=== PATIENT | female | born 1960 | race Asian ===

== ENCOUNTER 2020-05-26 23:08 | Emergency (ER) | payer OTHER ==
[~2020-05-26] VITALS: Ht 147.3 cm; Wt 43.2 kg
[2020-05-26] MEDS ORDERED: LEVO50 PO (23:28)
[2020-05-26] MEDS ORDERED: OMEP20CA13 PO (23:28)
[2020-05-26] MEDS ORDERED: ONDANSETRON HCL 4 MG/2 ML VIAL IVP ONE (23:30)
[2020-05-27] MEDS ORDERED: AcetaZOLAMIDE SODIUM 500 MG VIAL IVP ONE
[2020-05-27] MEDS ORDERED: MORPHINE SULFATE 2 MG/ML SYRINGE IVP ONE (01:15)
[2020-05-27 01:18] LABS: BASOPHILS % (AUTO) 0.4 % (0.0-2.0); HEMATOCRIT 41.6 % (36-46); HEMOGLOBIN 13.5 g/dL (12.0-16.0); LYMPHOCYTES # (AUTO) 1.3 K/uL (1.0-4.8); LYMPHOCYTES % (AUTO) 17.2 % (22.0-44.0); MEAN CORPUSCULAR HEMOGLOBIN 26.6 pg (26.0-34.0); MEAN CORPUSCULAR HGB CONC 32.5 G/dL (31.0-37.0); MEAN CORPUSCULAR VOLUME 82 fL (80-100); MONOCYTES # (AUTO) 0.3 K/uL (0.1-1.0); MONOCYTES % (AUTO) 4.5 % (2.0-9.0); NEUTROPHILS # (AUTO) 5.5 K/uL (1.8-7.7); NEUTROPHILS % (AUTO) 75.9 % (40.0-70.0); PLATELET COUNT (AUTO) 171 K/uL (150-450); RED BLOOD CELL COUNT(AUTO) 5.08 MIL/uL (4.00-5.20); RED CELL DISTRIBUTION WIDTH 13.1 % (11.5-14.5)
[2020-05-27 01:21] LABS: ANION GAP 10 mmol/L (8-16); CALCIUM, TOTAL 8.7 mg/dL (8.8-10.5); CARBON DIOXIDE 28 mmol/L (22-29); CHLORIDE 102 mmol/L (98-107); CREATININE 0.75 mg/dL (0.60-1.30); GLOMERULAR FILTR. RATE CALC > 60 mL/min (>60); GLUCOSE,RANDOM 115 mg/dL (70-110); POTASSIUM 3.3 mmol/L (3.5-5.1); SODIUM SERUM 140 mmol/L (136-145); UREA NITROGEN, BLOOD 12 mg/dL (7-18)
[2020-05-27 01:26] LABS: ALANINE AMINOTRANSFERASE 18 U/L (12-78); ALBUMIN 4.1 g/dL (3.4-5.0); ALKALINE PHOSPHATASE 116 U/L (46-116); ASPARTATE AMINOTRANSFERASE 23 U/L (15-37); BILIRUBIN,TOTAL 0.3 mg/dL (0.1-1.0); TOTAL PROTEIN, SERUM 8.2 g/dL (6.4-8.2)
[2020-05-27] MEDS ORDERED: SODIUM CHLORIDE 0.9% 100 ML ONE (01:34)
[2020-05-27] MEDS ORDERED: IOVERSOL 350 MG/ML 100 ML VIAL ONE (01:34)
[2020-05-27 02:26] LABS: COVID AG,FIA SOURCE NASOPHARYNGEAL
[2020-05-27] MEDS ORDERED: ONDANSETRON HCL 4 MG/2 ML VIAL IVP ONE (03:00)
[2020-05-27] MEDS ORDERED: POTASSIUM CHLORIDE 20 MEQ ER TABLET ONE (03:06)
[2020-05-27] MEDS ORDERED: TIMOLOL MALEATE 0.5% 5 ML OPHTHALMIC SOLUTION OS ONE ×2 (03:15)
[2020-05-27] MEDS ORDERED: BRIMONIDINE TARTRATE 0.15% 5 ML OPHTHALMIC SOLUTION OS ONE ×2 (03:15)
[2020-05-27] MEDS ORDERED: POTASSIUM CHLORIDE 20 MEQ ER TABLET PO ONE (03:15)
[2020-05-27 03:48] VITALS: BP 125/65
== END 2020-05-27 04:00 | disposition designated cancer center or children's hospital (05) ==
LOC: EMS 23:09
DX: H40.052 Ocular hypertension, left eye (principal); R11.2 Nausea with vomiting, unspecified; E03.9 Hypothyroidism, unspecified; Z20.822 Contact with and (suspected) exposure to COVID-19
CPT/HCPCS: 36415; 70450; 70496; 80053; 85025; 87426; 96374; 96375; 96376; 99285; J1120; J2270; J2405 ×2; J7050; Q9967